=== PATIENT | female | born 1960 | race American Indian/Alaskan Native ===

== ENCOUNTER 2017-05-15 13:39 | Outpatient (CLI) | payer MEDICAID ==
[2017-05-15 14:13] LABS: Albumin 4.3 g/dL (3.9-5); Albumin/Globulin Ratio 1.1 %; BUN/Creatinine Ratio 19.16; Bilirubin,Total 0.2 mg/dL (0.1-1.2); Calcium 9.6 mg/dL (8.4-10.2); Chloride 103.5 mmol/L (98-107); Potassium 4.2 mmol/L (3.6-5.0); Total Protein 8.2 g/dL (6.3-8.2)
[2017-05-15 14:19] LABS: Hematocrit 36.5 % (30.3-42.9); Hemoglobin 11.7 gm/dl (10.1-14.3); Mean Corpuscular HGB Conc 32 % (30-34); Mean Corpuscular Hemoglobin 27 pg (28-32); Mean Corpuscular Volume 86 fl (79-97); Platelet Count 428 K/mm3 (140-440); Red Blood Count 4.27 M/mm3 (3.65-5.03); Red Cell Distribution Width 15.1 % (13.2-15.2); White Blood Count 4.4 K/mm3 (4.5-11.0)
== END 2017-05-15 13:40 | disposition home or self-care (01) ==
LOC: LAB 13:39
DX: I12.9 Hypertensive chronic kidney disease with stage 1 through stage 4 chronic kidney disease, or unspecified chronic kidney disease (principal); N18.3 Chronic kidney disease, stage 3 (moderate); E11.22 Type 2 diabetes mellitus with diabetic chronic kidney disease; D63.1 Anemia in chronic kidney disease; E11.40 Type 2 diabetes mellitus with diabetic neuropathy, unspecified; E87.2 Acidosis; F32.9 Major depressive disorder, single episode, unspecified; Z87.891 Personal history of nicotine dependence
CPT/HCPCS: 36415; 80053; 85027

== ENCOUNTER 2018-05-25 17:01 | Outpatient (CLI) | payer MEDICAID ==
[2018-05-25 17:31] LABS: Hematocrit 34.6 % (30.3-42.9); Hemoglobin 12.2 gm/dl (10.1-14.3); Mean Corpuscular HGB Conc 35 % (30-34); Mean Corpuscular Hemoglobin 29 pg (28-32); Mean Corpuscular Volume 81 fl (79-97); Platelet Count 455 K/mm3 (140-440); Red Blood Count 4.29 M/mm3 (3.65-5.03); Red Cell Distribution Width 14.8 % (13.2-15.2)
[2018-05-25 17:46] LABS: Albumin 5.1 g/dL (3.9-5); BUN/Creatinine Ratio 17; Blood Urea Nitrogen 17 mg/dL (7-17); Calcium 10.2 mg/dL (8.4-10.2); Hemolysis Index 0
[2018-05-25 18:11] LABS: Creatinine,Urine 91.9 mg/dL (0.1-20.0)
[2018-05-25 18:22] LABS: Protein/Creatinine Ratio,Urine 4.16
== END 2018-05-25 17:02 | disposition home or self-care (01) ==
LOC: LAB 17:01
PROVIDERS: ATTEND Internal Medicine
DX: I12.9 Hypertensive chronic kidney disease with stage 1 through stage 4 chronic kidney disease, or unspecified chronic kidney disease (principal); E11.22 Type 2 diabetes mellitus with diabetic chronic kidney disease; N18.3 Chronic kidney disease, stage 3 (moderate); K21.9 Gastro-esophageal reflux disease without esophagitis; F32.9 Major depressive disorder, single episode, unspecified; Z90.49 Acquired absence of other specified parts of digestive tract; Z90.710 Acquired absence of both cervix and uterus; Z87.891 Personal history of nicotine dependence; Z88.6 Allergy status to analgesic agent; Z88.8 Allergy status to other drugs, medicaments and biological substances
CPT/HCPCS: 36415; 80048; 82040; 82570; 84100; 84156; 85027

== ENCOUNTER 2019-02-28 16:51 | Outpatient (CLI) | payer MEDICAID ==
[2019-02-28 17:31] LABS: Basophils % (Auto) 0.5 % (0.0-1.8); Eosinophils # (Auto) 0.2 K/mm3 (0.0-0.4); Eosinophils % (Auto) 3.8 % (0.0-4.3); Hematocrit 32.4 % (30.3-42.9); Hemoglobin 10.4 gm/dl (10.1-14.3); Lymphocytes # (Auto) 1.8 K/mm3 (1.2-5.4); Lymphocytes % (Auto) 32.1 % (13.4-35.0); Mean Corpuscular HGB Conc 32 % (30-34); Mean Corpuscular Volume 83 fl (79-97); Monocytes # (Auto) 0.6 K/mm3 (0.0-0.8); Platelet Count 402 K/mm3 (140-440); Red Blood Count 3.93 M/mm3 (3.65-5.03); Red Cell Distribution Width 14.2 % (13.2-15.2)
[2019-02-28 17:40] LABS: Creatinine,Urine 85.4 mg/dL (0.1-20.0); Protein/Creatinine Ratio,Urine 1.98
[2019-02-28 17:47] LABS: Albumin 4.6 g/dL (3.9-5); Calcium 9.3 mg/dL (8.4-10.2)
== END 2019-02-28 16:52 | disposition home or self-care (01) ==
LOC: LAB 16:51
PROVIDERS: ATTEND Internal Medicine
DX: I12.9 Hypertensive chronic kidney disease with stage 1 through stage 4 chronic kidney disease, or unspecified chronic kidney disease (principal); N18.3 Chronic kidney disease, stage 3 (moderate); E11.40 Type 2 diabetes mellitus with diabetic neuropathy, unspecified; E11.22 Type 2 diabetes mellitus with diabetic chronic kidney disease
CPT/HCPCS: 36415; 80048; 82040; 82570; 84100; 84156; 85025

== ENCOUNTER 2019-08-06 13:46 | Outpatient (CLI) | payer MEDICAID ==
[2019-08-06 14:22] LABS: Hematocrit 30.9 % (30.3-42.9); Mean Corpuscular HGB Conc 32 % (30-34); Mean Corpuscular Volume 80 fl (79-97); Platelet Count 350 K/mm3 (140-440); Red Blood Count 3.85 M/mm3 (3.65-5.03); Red Cell Distribution Width 16.2 % (13.2-15.2)
[2019-08-06 14:39] LABS: Calcium 8.8 mg/dL (8.4-10.2)
[2019-08-06 14:40] LABS: Albumin 4.1 g/dL (3.9-5)
== END 2019-08-06 13:47 | disposition home or self-care (01) ==
LOC: LAB 13:46
PROVIDERS: ATTEND Internal Medicine
DX: I12.9 Hypertensive chronic kidney disease with stage 1 through stage 4 chronic kidney disease, or unspecified chronic kidney disease (principal); N18.3 Chronic kidney disease, stage 3 (moderate); E87.2 Acidosis; D89.2 Hypergammaglobulinemia, unspecified; E11.22 Type 2 diabetes mellitus with diabetic chronic kidney disease; K21.9 Gastro-esophageal reflux disease without esophagitis; Z90.710 Acquired absence of both cervix and uterus; Z86.2 Personal history of diseases of the blood and blood-forming organs and certain disorders involving the immune mechanism; Z90.49 Acquired absence of other specified parts of digestive tract; Z87.891 Personal history of nicotine dependence
CPT/HCPCS: 36415; 80048; 82040; 84100; 85027

== ENCOUNTER 2019-11-18 14:16 | Outpatient (CLI) | payer MEDICAID ==
[2019-11-18 14:40] LABS: Hematocrit 33.6 % (30.3-42.9); Hemoglobin 10.7 gm/dl (10.1-14.3); Mean Corpuscular HGB Conc 32 % (30-34); Mean Corpuscular Volume 82 fl (79-97); Platelet Count 382 K/mm3 (140-440); Red Blood Count 4.09 M/mm3 (3.65-5.03); Red Cell Distribution Width 15.6 % (13.2-15.2)
[2019-11-18 14:51] LABS: Creatinine,Urine 60.4 mg/dL (0.1-20.0); Protein/Creatinine Ratio,Urine 0.66
[2019-11-18 15:01] LABS: Albumin 4.1 g/dL (3.9-5); Calcium 9.6 mg/dL (8.4-10.2)
[2019-11-22 04:10] LABS: Albumin 3.8 g/dL (3.8-4.8); Gamma Globulin 1.2 g/dL (0.8-1.7)
[2019-11-22 14:40] LABS: Vitamin D, 25-OH, D2 <4 ng/mL
== END 2019-11-18 14:17 | disposition home or self-care (01) ==
LOC: LAB 14:16
PROVIDERS: ATTEND Internal Medicine
DX: N18.3 Chronic kidney disease, stage 3 (moderate) (principal); D89.2 Hypergammaglobulinemia, unspecified
CPT/HCPCS: 36415; 80053; 82306; 82570; 84156; 84165; 85027

== ENCOUNTER 2020-08-18 17:15 | Outpatient (CLI) | payer MEDICAID ==
[2020-08-18 17:59] LABS: Hematocrit 33.5 % (30.3-42.9); Hemoglobin 10.8 gm/dl (10.1-14.3); Mean Corpuscular HGB Conc 32 % (30-34); Mean Corpuscular Volume 82 fl (79-97); Platelet Count 280 K/mm3 (140-440); Red Blood Count 4.09 M/mm3 (3.65-5.03)
[2020-08-18 18:14] LABS: Creatinine,Urine 59.7 mg/dL (0.1-20.0); Protein/Creatinine Ratio,Urine 0.77
[2020-08-18 18:21] LABS: Albumin 4.9 g/dL (3.9-5); Calcium 9.7 mg/dL (8.4-10.2)
[2020-08-18 19:04] LABS: Basophils % (Manual) 0 % (0.0-1.8); Total Cells Counted 100
[2020-08-18 19:06] LABS: Anisocytosis Few; Platelet Estimate Consistent w Auto
[2020-08-23 13:20] LABS: Vitamin D, 25-OH, D2 <4 ng/mL
== END 2020-08-18 17:16 | disposition home or self-care (01) ==
LOC: LAB 17:15
PROVIDERS: ATTEND Internal Medicine
DX: N18.30 Chronic kidney disease, stage 3 unspecified (principal)
CPT/HCPCS: 36415; 80048; 82040; 82306; 82570; 84100; 84156; 85007; 85025

== ENCOUNTER 2021-01-26 17:33 | Outpatient (CLI) | payer MEDICAID ==
[2021-01-26 18:16] LABS: Hematocrit 31.9 % (30.3-42.9); Hemoglobin 10.4 gm/dl (10.1-14.3); Mean Corpuscular HGB Conc 33 % (30-34); Mean Corpuscular Volume 77 fl (79-97); Platelet Count 305 K/mm3 (140-440); Red Blood Count 4.16 M/mm3 (3.65-5.03)
[2021-01-26 18:26] LABS: Creatinine,Urine 56.7 mg/dL (0.1-20.0); Protein/Creatinine Ratio,Urine 0.48; Red Cell Distribution Width 21.5 % (13.2-15.2)
[2021-01-26 18:39] LABS: Albumin 4.4 g/dL (3.9-5)
[2021-01-30 14:19] LABS: Vitamin D, 25-OH, D2 <4 ng/mL
== END 2021-01-26 17:34 | disposition home or self-care (01) ==
LOC: LAB 17:33
PROVIDERS: ATTEND Internal Medicine
DX: I12.9 Hypertensive chronic kidney disease with stage 1 through stage 4 chronic kidney disease, or unspecified chronic kidney disease (principal); E11.22 Type 2 diabetes mellitus with diabetic chronic kidney disease; N18.30 Chronic kidney disease, stage 3 unspecified; E11.40 Type 2 diabetes mellitus with diabetic neuropathy, unspecified; E78.2 Mixed hyperlipidemia; D89.2 Hypergammaglobulinemia, unspecified; E87.6 Hypokalemia
CPT/HCPCS: 36415; 80048; 82040; 82306; 82570; 84100; 84156; 85027